=== PATIENT | female | born 1985 | race Caucasian/White ===

== ENCOUNTER 2017-02-24 23:01 | Emergency (ER) | payer OTHER ==
[~2017-02-24] VITALS: Ht 172.7 cm; Wt 78.2 kg
[~2017-02-24 23:01] MED LIST: METO-301 PO; NOMED
[2017-02-24 23:04] VITALS: BP 114/74; PULSE 86; RESP 18; O2SAT 99
--- NOTE | 2017-02-24 23:44 | ED.REPORT ---
HPI-Dental/Mouth Prob Date of Service Feb 24, 2017 ED Provider: Yusef Garcia DO A 32 year old female with a history of depression and prior polysubstance abuse presents to the ED complaining of right molar pain. The pain radiates behind her right ear, and has been accompanied by right-sided facial numbness tonight. The pt was seen by her dentist two weeks ago. The tooth was not pulled at that time because of swelling, so she was prescribed ibuprofen and amoxicillin. She was unable to fill the antibiotic due to an issue with her pharmacy, but took four doses of amoxicillin that her son had left over in the course of two days. The pt was able to fill the ibuprofen and has been taking this for the pain. The pt denies recent substance abuse. Nursing Notes Stated Complaint: ABSCESS TOOTH Chief Complaint: Dental Nursing Notes Reviewed: Yes Allergies: Coded Allergies: promethazine (Verified Allergy, Unknown, 02/24/17) Scheduled PRN Metoclopramide (Reglan) 10 Mg Tablet 10 MG PO QID PRN PRN For Headache Miscellaneous Medications No Historical Medication (No Historical Medication) Ea General Time Seen by MD: 23:44 Chief Complaint Tooth pain Hx Obtained From: Patient Arrived By: Walk-in Onset Occurred: More than a week ago... Symptom Duration: Since onset Recent Healthcare: Recent doctor visit Similar Sx Previous: No Past Medical History Past Medical History Depression History of substance abuse Suicide attempt at age 14 or 15 Self mutilation Past Surgical History None reported Family History no h/o brain aneurysm Smoking History Current Every Day Smoker Social History Methamphetamine (former), cannabis, cigarettes - half a pack a day, no alcohol. Denies previous treatment. Denies the need for being in treatment at this point. Denies IV drug use. 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 Musculoskeletal: Denies: Back pain, Neck pain Skin: Denies Rash Physical Exam Initial Vital Signs Vital Signs (First) Date Time Temp Pulse Resp B/P Pulse Ox O2 Delivery O2 Flow Rate FiO2 02/24/17 23:04 36.4 86 18 114/74 99 Room Air Initial VS: Reviewed ENT: Airway patent, Mucous membranes moist right mandibular molar carious with surrounding buccal cellulitis no trismus, drooling or swelling of the floor of the mouth Neck: Atraumatic, Supple, Full range of motion General/Constitutional: Awake, Alert Head / Eyes: Atraumatic, Normocephalic, PERRL, EOMI Respiratory / Chest: Atraumatic, Breath sounds NL, Breath sounds = bilat, No respiratory distress Cardiovascular: Heart rate NL, Regular rhythm, Heart sounds NL Neurologic: Oriented X3, Speech NL, No motor deficits, No sensory deficits Abdomen: Atraumatic, Soft, Non-tender Back: Atraumatic, Full range of motion Upper Extremity / MS: Atraumatic, Full range of motion Lower Extremity / Pelvis / MS: Atraumatic, Full range of motion Skin: Color NL, No rash, Warm, Dry Psychiatric: Affect NL, Mood NL Interpretation & Diagnostics Pulse Oximetry Interpretation Pulse Oximetry Interpretation: 99% on room air Pulse Oximetry: Pulse Ox normal Procedures Dental Nerve Block Time: 00:23 Block Performed by: ED physician Consent / Setup / Site Prep: Informed consent provided, Consent from patient , Time-out performed, Mucous membrane dried, Topical anesthetic lakia, Hand hygiene observed, Stand sterile technique Anesthesia: Inferior alveolar block Local Anesthesia: Lidocaine 2% Post-Procedure / Complications: No complications, Condition improved, Tolerated procedure well, Patient stable, No bleeding Re-Eval/Medical Decision Med Decision/Clinical Course Gingivitis without evidence of an abscess. We will treat with antibiotics. Short course of pain medication. Urgent dental follow-up. No evidence of Tru angina. No stridor, trismus or drooling. Source of Hx: Old records Re-Evaluation/Progress : Time of Eval: 00:23 Patient Status: Condition improved Re-Evaluation/Progress Note: Pt rechecked and dental block is performed. The diagnosis and plan for discharge are discussed. The pt understands and agrees with the plan. All questions are addressed at this time. Counseled Regarding: Diagnosis, Need for follow-up, When/why to return to ED Discharge & Departure Primary Impression: Dental infection Additional Impression: Dental caries Disposition: Home Discharge Condition All VS Reviewed: Yes Condition: Stable Patient Instructions: Dental Caries (ED) Additional Instructions: Take Augmentin twice daily for seven days. Take one to two [place] every six hours as needed for severe pain. Do not drink, drive or consume acetaminophen while taking the [place]. Call your dentist to arrange a follow up appointment as soon as possible for further evaluation. Return to the emergency department if you develop any new or worsening symptoms. Referrals: Kathryn Smith MD (PCP) Scribe Attestation Portions of this note were transcribed by Dianelys Luis. I, Dr. Garcia personally performed the history, physical exam and medical decision-making; I reviewed and confirmed the accuracy of the information in the transcribed note. copies to: Kathryn Smith MD, Todd P DO Feb 24, 2017 23:44 DIANELYS LUSI Feb 25, 2017 00:13
[2017-02-25] MEDS ORDERED: Dexamethasone 20 mg/2 mL Oral Solution PO ONE (00:15)
[2017-02-25] MEDS ORDERED: Amoxicillin-Clav 875-125 mg Tablet PO ONE (00:15)
[2017-02-25] MEDS ORDERED: Lidocaine 2% 50 mL Inj NERVEBLOCK ONE (00:15)
[2017-02-25] MEDS ORDERED: _HYDROcodone/APAP 5-325 mg Tablet PO PRN (00:15)
== END 2017-02-25 00:36 | disposition home or self-care (01) ==
LOC: SED 23:01
DX: K04.7 Periapical abscess without sinus (principal); K02.9 Dental caries, unspecified; F17.200 Nicotine dependence, unspecified, uncomplicated; Z88.8 Allergy status to other drugs, medicaments and biological substances